=== PATIENT | female | born 1940 | race Caucasian/White ===

== ENCOUNTER 2023-05-14 12:33 | Inpatient (IN) | payer MEDICARE, MEDICAID ==
[~2023-05-14] VITALS: Ht 162.6 cm; Wt 58.4 kg
[~2023-05-14 12:33] MED LIST: AMLO-257 PO; ASPI-1450 PO; CITA-144 PO; FAMO20 PO; LEVO88TA7 PO; MULT-1239 PO; POLY17PO11 PO; RISP90SU SQ; TRAZ-252 PO
[2023-05-14 14:22] LABS: BASOPHILS % (AUTO) 0.6 % (0.0-2.0); EOSINOPHILS % (AUTO) 0.7 % (1.0-6.0); HEMOGLOBIN 12.5 g/dL (12.0-16.0); LYMPHOCYTES # (AUTO) 1.4 K/uL (1.0-4.8); MEAN CORPUSCULAR HEMOGLOBIN 29.3 pg (26.0-34.0); MEAN CORPUSCULAR HGB CONC 32.1 G/dL (31.0-37.0); MEAN CORPUSCULAR VOLUME 91 fL (80-100); MONOCYTES # (AUTO) 0.7 K/uL (0.1-1.0); MONOCYTES % (AUTO) 8.2 % (2.0-9.0); NEUTROPHILS % (AUTO) 73.5 % (40.0-70.0); PLATELET COUNT (AUTO) 185 K/uL (150-450); RED BLOOD CELL COUNT(AUTO) 4.27 MIL/uL (4.00-5.20); RED CELL DISTRIBUTION WIDTH 13.9 % (11.5-14.5); WHITE BLOOD COUNT (AUTO) 8.1 K/uL (4.5-11.0)
[2023-05-14 14:32] LABS: ANION GAP 10 mmol/L (8-16); CARBON DIOXIDE 29 mmol/L (22-29); CHLORIDE 105 mmol/L (98-107); CREATININE 0.77 mg/dL (0.60-1.30); GLOMERULAR FILTR. RATE CALC > 60 mL/min (>60); GLUCOSE,RANDOM 94 mg/dL (70-110); POTASSIUM 3.4 mmol/L (3.5-5.1); SODIUM SERUM 144 mmol/L (136-145); UREA NITROGEN, BLOOD 9 mg/dL (7-18)
[2023-05-14 14:33] LABS: COVID AG,FIA SOURCE NASAL SWAB
[2023-05-14 14:33] LABS: CALCIUM, TOTAL 8.9 mg/dL (8.8-10.5)
[2023-05-14 14:39] LABS: ALANINE AMINOTRANSFERASE 18 U/L (12-78); ALBUMIN 3.2 g/dL (3.4-5.0); ALKALINE PHOSPHATASE 86 U/L (46-116); ASPARTATE AMINOTRANSFERASE 25 U/L (15-37); BILIRUBIN,TOTAL 0.4 mg/dL (0.1-1.0); TOTAL PROTEIN, SERUM 6.6 g/dL (6.4-8.2)
[2023-05-14 14:58] LABS: SARS-COV2 (COVID) ANTIGEN,FIA Negative (Negative)
[2023-05-14 15:14] LABS: ALCOHOL, BLOOD (SERUM) < 3 mg/dL (0-10)
[2023-05-15 16:49] LABS: APPEARANCE,URINE CLEAR (CLEAR); BILIRUBIN,URINE NEGATIVE (NEGATIVE); COLOR,URINE YELLOW (YELLOW); GLUCOSE, URINE (UA) NEGATIVE (NEGATIVE); KETONES,URINE =>150 mg/dL (NEGATIVE); LEUKOCYTE ESTERASE ,URINE MODERATE (NEGATIVE); NITRATE,URINE NEGATIVE (NEGATIVE); OCCULT BLOOD,URINE LARGE (NEGATIVE); PROTEIN,URINE TRACE mg/dL (NEGATIVE); SPECIFIC GRAVITIY, URINE 1.025 (1.003-1.030); UROBILINOGEN,URINE <=1.0 mg/dL (<=1.0)
[2023-05-15 16:57] LABS: ALCOHOL, URINE DRUG SCREEN NEGATIVE (NEGATIVE); AMPHET/METH SCREEN,URINE NEGATIVE (NEGATIVE); BARBITURATE SCREEN, URINE NEGATIVE (NEGATIVE); BENZODIAZEPINES SCREEN,URINE NEGATIVE (NEGATIVE); CANNABINOID SCREEN,URINE NEGATIVE (NEGATIVE); COCAINE SCREEN,URINE NEGATIVE (NEGATIVE); METHADONE SCREEN, URINE NEGATIVE (NEGATIVE); OPIATE SCREEN,URINE NEGATIVE (NEGATIVE); PHENCYCLIDINE SCREEN,URINE NEGATIVE (NEGATIVE)
[2023-05-15 17:25] LABS: BACTERIA,URINE Few /HPF (None Seen)
[2023-05-16] MEDS ORDERED: FAMO20 PO (06:24)
[2023-05-16] MEDS ORDERED: IPRA3AMP23 NEB (06:24)
[2023-05-16] MEDS ORDERED: LEVO88TA4 PO (06:24)
[2023-05-16] MEDS ORDERED: OLAN10TA74 PO (06:24)
[2023-05-16] MEDS ORDERED: HALO5TAB23 PO (06:24)
[2023-05-16] MEDS ORDERED: ASPI-1450 PO (06:24)
[2023-05-16] MEDS ORDERED: DIVA125C20 PO (06:24)
[2023-05-16] MEDS: LEVOTHYROXINE SODIUM 88 MCG TABLET PO ONE (08:09)
[2023-05-16] MEDS: OLANZapine 10 MG TABLET PO ONE (08:12)
[2023-05-16] MEDS: DIVALPROEX SODIUM 125 MG DR CAPSULE PO ONE (08:12)
[2023-05-16] MEDS: FAMOTIDINE 20 MG TABLET PO ONE (08:12)
[2023-05-16] MEDS: OLANZapine 10 MG TABLET PO SCH (09:00)
[2023-05-16] MEDS: DIVALPROEX SODIUM 125 MG DR CAPSULE PO SCH (09:00)
[2023-05-16] MEDS: LORazepam 1 MG TABLET PO PRN (09:48)
[2023-05-16] MEDS: QUEtiapine FUMARATE 100 MG TABLET PO PRN (09:48)
[2023-05-16] MEDS: HALOPERIDOL LACTATE 5 MG/ML VIAL IM ONE (10:16)
[2023-05-16] MEDS: LORazepam 2 MG/ML VIAL IM ONE (10:16)
[2023-05-16] MEDS: CefTRIAXone 1 GM/DEXTROSE 50 ML IV ONE (16:49)
[2023-05-16] MEDS: SODIUM CHLORIDE 0.9% 1,000 ML IV ONE (16:50)
[2023-05-16 17:23] LABS: BASOPHILS % (AUTO) 1.1 % (0.0-2.0); EOSINOPHILS % (AUTO) 0.9 % (1.0-6.0); HEMOGLOBIN 13.4 g/dL (12.0-16.0); LYMPHOCYTES % (AUTO) 21.6 % (22.0-44.0); MEAN CORPUSCULAR HEMOGLOBIN 30.2 pg (26.0-34.0); MEAN CORPUSCULAR HGB CONC 33.5 G/dL (31.0-37.0); MEAN CORPUSCULAR VOLUME 90 fL (80-100); MONOCYTES # (AUTO) 0.9 K/uL (0.1-1.0); MONOCYTES % (AUTO) 9.9 % (2.0-9.0); NEUTROPHILS # (AUTO) 6.2 K/uL (1.8-7.7); NEUTROPHILS % (AUTO) 66.5 % (40.0-70.0); PLATELET COUNT (AUTO) 221 K/uL (150-450); RED BLOOD CELL COUNT(AUTO) 4.44 MIL/uL (4.00-5.20); WHITE BLOOD COUNT (AUTO) 9.3 K/uL (4.5-11.0)
[2023-05-16 17:33] LABS: LACTIC ACID 1.8 mmol/L (0.4-2.0)
[2023-05-16] MEDS: SODIUM CHLORIDE 0.9% 1,750 ML IV ONE (20:28)
[2023-05-16] MEDS ORDERED: 0.9% SODIUM CHLORIDE 10 ML SYRINGE IVP PRN (20:30)
[2023-05-16 21:12] LABS: ANION GAP 10 mmol/L (8-16); CALCIUM, TOTAL 9.3 mg/dL (8.8-10.5); CARBON DIOXIDE 28 mmol/L (22-29); CHLORIDE 104 mmol/L (98-107); CREATININE 0.81 mg/dL (0.60-1.30); GLOMERULAR FILTR. RATE CALC > 60 mL/min (>60); GLUCOSE,RANDOM 124 mg/dL (70-110); INR 1.1 (0.9-1.1); POTASSIUM 3.9 mmol/L (3.5-5.1); PROTHROMBIN TIME 11.2 SEC (9.4-11.6); SODIUM SERUM 142 mmol/L (136-145); UREA NITROGEN, BLOOD 9 mg/dL (7-18)
[2023-05-16 21:17] LABS: ALANINE AMINOTRANSFERASE 17 U/L (12-78); ALBUMIN 3.2 g/dL (3.4-5.0); ALKALINE PHOSPHATASE 91 U/L (46-116); ASPARTATE AMINOTRANSFERASE 34 U/L (15-37); BILIRUBIN,TOTAL 0.3 mg/dL (0.1-1.0); TOTAL PROTEIN, SERUM 7.1 g/dL (6.4-8.2)
[2023-05-17 01:03] VITALS: RESP 18
[2023-05-17] MEDS ORDERED: PNEUMOCOCCAL VACCINE POLYVALENT 0.5 ML SYRINGE [PPSV23] IM. ONE (02:30)
[2023-05-17] MEDS ORDERED: INFLUENZA VIRUS VACCINE QVS 2023-24 (6MO+)/PF 60 MCG/0.5 ML SYRINGE IM. ONE (02:30)
[2023-05-17 08:55] VITALS: BP 142/60; PULSE 60; RESP 17; TEMP 98.1; O2SAT 98
[2023-05-17] MEDS ORDERED: IBUPROFEN 400 MG TABLET PO PRN (09:00)
[2023-05-17] MEDS ORDERED: ACETAMINOPHEN 325 MG TABLET PO PRN (09:00)
[2023-05-17] MEDS: CEPHALEXIN MONOHYDRATE 500 MG CAPSULE PO SCH (09:00)
[2023-05-17] MEDS ORDERED: MAGNESIUM HYDROXIDE SUSPENSION 30 ML UDCUP PO PRN (09:00)
[2023-05-17] MEDS ORDERED: LOPERAMIDE HCL 2 MG CAPSULE PO PRN (09:00)
[2023-05-17] MEDS: ASPIRIN 81 MG CHEWABLE TABLET PO SCH (09:00)
[2023-05-17] MEDS: FAMOTIDINE 20 MG TABLET PO SCH (09:00)
[2023-05-17] MEDS ORDERED: ALBUTEROL SULFATE HFA 90 MCG/PUFF 8 GM INHALER IH PRN (09:00)
[2023-05-17] MEDS ORDERED: NICOTINE 14 MG/24 HOUR PATCH TD PRN (09:00)
[2023-05-17] MEDS ORDERED: ONDANSETRON HCL 4 MG TABLET PO PRN (09:00)
[2023-05-17] MEDS ORDERED: PETROLATUM,WHITE 28 GM JELLY TP PRN (09:00)
[2023-05-17] MEDS ORDERED: MAG HYDROX/ALUMINUM HYD/SIMETH ES 30 ML SUSPENSION UDCUP PO PRN (09:00)
[2023-05-17] MEDS ORDERED: CloNIDine HCL 0.1 MG TABLET PO PRN (09:00)
[2023-05-17] MEDS ORDERED: DOCUSATE SODIUM 100 MG CAPSULE PO PRN (09:00)
[2023-05-17] MEDS: OLANZapine 10 MG RAPDIS TABLET PO SCH (09:45)
[2023-05-17] MEDS: DIVALPROEX SODIUM 125 MG DR CAPSULE PO SCH (09:45)
[2023-05-17] MEDS ORDERED: IPRATROPIUM BROMIDE 0.5 MG/2.5 ML NEB SOLUTION NEB PRN (11:15)
[2023-05-17] MEDS ORDERED: ALBUTEROL SULFATE 2.5 MG/0.5 ML NEB SOLUTION NEB PRN (11:15)
[2023-05-17] MEDS ORDERED: IPRATROPIUM BROMIDE 0.5 MG/2.5 ML NEB SOLUTION NEB SCH (14:00)
[2023-05-17 21:26] VITALS: BP 140/63; PULSE 62; RESP 18; TEMP 98; O2SAT 98
[2023-05-18] MEDS: LEVOTHYROXINE SODIUM 88 MCG TABLET PO SCH (07:00)
[2023-05-18 08:05] VITALS: BP 137/81; PULSE 82; RESP 18; TEMP 98.1; O2SAT 97
[2023-05-18] MEDS: PRE FILLED SQ SCH (09:40)
[2023-05-18] MEDS: RISPERIDONE SQ SCH (09:40)
[2023-05-18 19:29] LABS: HEMOGLOBIN A1C 5.6 % (3.8-5.6)
[2023-05-18 19:37] LABS: CHOL/HDL RATIO 3.9 (3.9-5.7); MAGNESIUM 1.8 mg/dL (1.80-2.40); PHOSPHORUS 3.4 mg/dL (2.5-4.9)
[2023-05-18 20:02] LABS: THYROID STIMULATING HORMONE 9.01 uIU/mL (0.36-3.74)
[2023-05-18 20:20] VITALS: BP 119/67; PULSE 77; RESP 18; TEMP 97.7; O2SAT 95
[2023-05-19 08:20] LABS: CHOL/HDL RATIO 3.4 (3.9-5.7)
[2023-05-19 09:27] VITALS: BP 166/79; PULSE 84; RESP 17; TEMP 97.5; O2SAT 95
[2023-05-19 21:32] VITALS: RESP 18
[2023-05-19] MEDS: ZOLPIDEM TARTRATE 10 MG TABLET PO PRN (21:41)
[2023-05-20 09:05] VITALS: BP 148/57; PULSE 76; RESP 18; TEMP 97.8; O2SAT 97
[2023-05-20 20:32] VITALS: BP 145/62; PULSE 70; RESP 18; TEMP 97.3; O2SAT 95
[2023-05-21 12:53] VITALS: RESP 18
[2023-05-21 20:17] VITALS: BP 156/78; PULSE 69; RESP 18; TEMP 96.5; O2SAT 99
[2023-05-22 10:23] VITALS: RESP 18; TEMP 97.4
[2023-05-22 21:19] VITALS: BP 145/75; PULSE 70; RESP 18; TEMP 97.5; O2SAT 98
[2023-05-23 14:15] VITALS: RESP 18
[2023-05-23 20:16] VITALS: RESP 18
[2023-05-24 08:21] VITALS: BP 129/68; PULSE 82; RESP 18; TEMP 96.8; O2SAT 100
[2023-05-24 20:18] VITALS: BP 148/68; PULSE 93; RESP 18; TEMP 97.4; O2SAT 96
[2023-05-25 11:54] VITALS: BP 116/59; PULSE 100; RESP 18; TEMP 97.8; O2SAT 99
[2023-05-25 20:21] VITALS: BP 136/56; PULSE 76; RESP 18; TEMP 97.7; O2SAT 96
[2023-05-26 12:26] VITALS: RESP 18; TEMP 98
[2023-05-26 20:18] VITALS: BP 132/82; PULSE 84; RESP 18; TEMP 97.6; O2SAT 97
[2023-05-27 12:09] VITALS: BP 115/70; PULSE 78; RESP 17; TEMP 98; O2SAT 96
[2023-05-28 10:43] VITALS: RESP 18; TEMP 97.6
[2023-05-29 17:53] VITALS: BP 123/65; PULSE 98; RESP 18; TEMP 96.8; O2SAT 96
[2023-05-29 20:13] VITALS: BP 130/49; PULSE 98; RESP 18; TEMP 97.7; O2SAT 96
[2023-05-30 08:44] VITALS: BP 138/54; PULSE 83; RESP 18; TEMP 97.5; O2SAT 98
[2023-05-30 21:45] VITALS: RESP 18
[2023-05-31 13:31] VITALS: RESP 18
[2023-05-31 21:35] VITALS: BP_SYST 139; BP_DIAS 59; BP_DIAS 69; PULSE 87; PULSE 90; RESP 18; TEMP 97.1; O2SAT 87; O2SAT 98
[2023-06-01 08:38] VITALS: RESP 18; TEMP 97.4
[2023-06-01 20:10] VITALS: BP 123/67; PULSE 69; RESP 18; TEMP 98; O2SAT 95
[2023-06-02 11:55] VITALS: RESP 17; TEMP 98.2
[2023-06-02] MEDS: TUBERCULIN, PURIFIED PROTEIN DERIVATIVE 5 TU/0.1 ML SYRINGE ID ONE (12:15)
[2023-06-02 20:16] VITALS: BP 97/55; PULSE 66; RESP 18; TEMP 97.4; O2SAT 95
[2023-06-03 10:36] VITALS: RESP 18; TEMP 97.6
[2023-06-03 14:09] VITALS: BP 129/67; PULSE 85; RESP 18; TEMP 98.2; O2SAT 100
[2023-06-03 20:01] VITALS: BP 124/72; PULSE 82; RESP 18; TEMP 97.9; O2SAT 98
[2023-06-04 11:42] VITALS: BP 130/70; PULSE 89; RESP 17; TEMP 98; O2SAT 96
[2023-06-05 09:05] VITALS: BP 156/64; PULSE 76; RESP 18; TEMP 97.6; O2SAT 97
[2023-06-05 20:11] VITALS: BP 132/75; PULSE 72; RESP 18; TEMP 97.9; O2SAT 98
[2023-06-06 11:02] VITALS: BP 126/69; PULSE 85; RESP 17; TEMP 98; O2SAT 96
[2023-06-06 21:14] VITALS: RESP 18; TEMP 98.1
[2023-06-07 11:03] VITALS: BP 137/60; PULSE 54; RESP 16; TEMP 97.6; O2SAT 97
[2023-06-07 21:50] VITALS: BP 131/58; PULSE 72; RESP 18; TEMP 97.8; O2SAT 96
[2023-06-08 08:20] VITALS: BP 130/66; PULSE 76; RESP 18; TEMP 98; O2SAT 97
[2023-06-08 20:06] VITALS: BP 132/78; PULSE 72; RESP 18; TEMP 97.7; O2SAT 97
[2023-06-09 08:53] VITALS: BP 124/76; PULSE 64; RESP 18; TEMP 98.1; O2SAT 97
[2023-06-09 21:41] VITALS: RESP 18
[2023-06-10 07:44] LABS: BASOPHILS % (AUTO) 0.1 % (0.0-2.0); EOSINOPHILS % (AUTO) 0 % (1.0-6.0); HEMATOCRIT 39.3 % (36-46); HEMOGLOBIN 12.9 g/dL (12.0-16.0); LYMPHOCYTES # (AUTO) 1.6 K/uL (1.0-4.8); LYMPHOCYTES % (AUTO) 7.9 % (22.0-44.0); MEAN CORPUSCULAR HEMOGLOBIN 29.8 pg (26.0-34.0); MEAN CORPUSCULAR HGB CONC 32.9 G/dL (31.0-37.0); MEAN CORPUSCULAR VOLUME 91 fL (80-100); MONOCYTES # (AUTO) 2.1 K/uL (0.1-1.0); MONOCYTES % (AUTO) 9.9 % (2.0-9.0); NEUTROPHILS # (AUTO) 17.1 K/uL (1.8-7.7); NEUTROPHILS % (AUTO) 82.1 % (40.0-70.0); PLATELET COUNT (AUTO) 194 K/uL (150-450); RED BLOOD CELL COUNT(AUTO) 4.33 MIL/uL (4.00-5.20); RED CELL DISTRIBUTION WIDTH 14.3 % (11.5-14.5); WHITE BLOOD COUNT (AUTO) 20.8 K/uL (4.5-11.0)
[2023-06-10 07:54] LABS: CALCIUM, TOTAL 8.6 mg/dL (8.8-10.5); CREATININE 1.09 mg/dL (0.60-1.30); POTASSIUM 4.3 mmol/L (3.5-5.1)
[2023-06-10 11:36] VITALS: BP 123/60; PULSE 73; RESP 18; TEMP 98; O2SAT 96
[2023-06-10 21:11] VITALS: TEMP 98
[2023-06-11 09:19] VITALS: BP 136/70; PULSE 76; RESP 18; TEMP 98; O2SAT 92
[2023-06-12 14:41] LABS: BASOPHILS % (AUTO) 0.4 % (0.0-2.0); EOSINOPHILS % (AUTO) 0.1 % (1.0-6.0); HEMATOCRIT 38.4 % (36-46); HEMOGLOBIN 12.7 g/dL (12.0-16.0); LYMPHOCYTES # (AUTO) 2.1 K/uL (1.0-4.8); LYMPHOCYTES % (AUTO) 11.9 % (22.0-44.0); MEAN CORPUSCULAR HEMOGLOBIN 30.2 pg (26.0-34.0); MEAN CORPUSCULAR HGB CONC 33.1 G/dL (31.0-37.0); MEAN CORPUSCULAR VOLUME 91 fL (80-100); MONOCYTES % (AUTO) 11.3 % (2.0-9.0); NEUTROPHILS # (AUTO) 13.2 K/uL (1.8-7.7); NEUTROPHILS % (AUTO) 76.3 % (40.0-70.0); PLATELET COUNT (AUTO) 201 K/uL (150-450); RED CELL DISTRIBUTION WIDTH 14.2 % (11.5-14.5); WHITE BLOOD COUNT (AUTO) 17.4 K/uL (4.5-11.0)
[2023-06-12 20:44] VITALS: RESP 18
[2023-06-13 08:30] VITALS: BP 157/50; PULSE 76; RESP 18; TEMP 98.2; O2SAT 94
[2023-06-13 22:11] VITALS: RESP 18
[2023-06-14 11:00] LABS: BASOPHILS % (AUTO) 0.6 % (0.0-2.0); EOSINOPHILS % (AUTO) 1.4 % (1.0-6.0); HEMATOCRIT 35.9 % (36-46); HEMOGLOBIN 11.7 g/dL (12.0-16.0); LYMPHOCYTES # (AUTO) 1.9 K/uL (1.0-4.8); LYMPHOCYTES % (AUTO) 12.6 % (22.0-44.0); MEAN CORPUSCULAR HEMOGLOBIN 29.4 pg (26.0-34.0); MEAN CORPUSCULAR HGB CONC 32.5 G/dL (31.0-37.0); MEAN CORPUSCULAR VOLUME 91 fL (80-100); MONOCYTES # (AUTO) 1.5 K/uL (0.1-1.0); MONOCYTES % (AUTO) 9.9 % (2.0-9.0); NEUTROPHILS # (AUTO) 11.7 K/uL (1.8-7.7); NEUTROPHILS % (AUTO) 75.5 % (40.0-70.0); PLATELET COUNT (AUTO) 264 K/uL (150-450); RED BLOOD CELL COUNT(AUTO) 3.96 MIL/uL (4.00-5.20); RED CELL DISTRIBUTION WIDTH 14.3 % (11.5-14.5); WHITE BLOOD COUNT (AUTO) 15.4 K/uL (4.5-11.0)
[2023-06-15 06:59] LABS: BASOPHILS % (AUTO) 0.8 % (0.0-2.0); EOSINOPHILS % (AUTO) 0.7 % (1.0-6.0); HEMATOCRIT 35.4 % (36-46); HEMOGLOBIN 11.8 g/dL (12.0-16.0); LYMPHOCYTES # (AUTO) 3.3 K/uL (1.0-4.8); LYMPHOCYTES % (AUTO) 17.9 % (22.0-44.0); MEAN CORPUSCULAR HEMOGLOBIN 30.2 pg (26.0-34.0); MEAN CORPUSCULAR HGB CONC 33.4 G/dL (31.0-37.0); MEAN CORPUSCULAR VOLUME 90 fL (80-100); MONOCYTES # (AUTO) 2.4 K/uL (0.1-1.0); MONOCYTES % (AUTO) 13.2 % (2.0-9.0); NEUTROPHILS # (AUTO) 12.3 K/uL (1.8-7.7); NEUTROPHILS % (AUTO) 67.4 % (40.0-70.0); PLATELET COUNT (AUTO) 280 K/uL (150-450); RED BLOOD CELL COUNT(AUTO) 3.92 MIL/uL (4.00-5.20); RED CELL DISTRIBUTION WIDTH 14.2 % (11.5-14.5); WHITE BLOOD COUNT (AUTO) 18.2 K/uL (4.5-11.0)
[2023-06-15 10:59] VITALS: RESP 18
[2023-06-15] MEDS: LORazepam 2 MG/ML VIAL IM ONE (18:08)
[2023-06-16] MEDS: GuaiFENesin/D-METHORPHAN [SUGAR-FREE] 200-20MG/10 ML SYRUP UDCUP PO PRN (08:43)
[2023-06-16 10:08] VITALS: BP 148/78; PULSE 82; RESP 18; TEMP 99.2; O2SAT 95
[2023-06-16 20:00] VITALS: RESP 19; TEMP 97
[2023-06-17 09:15] VITALS: RESP 18; TEMP 97.6
[2023-06-17 12:47] VITALS: PULSE 87; RESP 18; TEMP 97.9
[2023-06-17 20:08] VITALS: RESP 18
[2023-06-18 08:33] VITALS: TEMP 98
[2023-06-18 20:23] VITALS: RESP 18
[2023-06-19 08:14] VITALS: RESP 17; TEMP 97.6
[2023-06-19 21:39] VITALS: RESP 18
[2023-06-20 11:35] VITALS: RESP 17
[2023-06-20 21:31] VITALS: RESP 18
[2023-06-21 07:43] LABS: BASOPHILS % (AUTO) 0.7 % (0.0-2.0); EOSINOPHILS % (AUTO) 1.7 % (1.0-6.0); HEMATOCRIT 34.6 % (36-46); HEMOGLOBIN 11.4 g/dL (12.0-16.0); LYMPHOCYTES # (AUTO) 2.1 K/uL (1.0-4.8); LYMPHOCYTES % (AUTO) 18.3 % (22.0-44.0); MEAN CORPUSCULAR HEMOGLOBIN 29.7 pg (26.0-34.0); MEAN CORPUSCULAR HGB CONC 32.9 G/dL (31.0-37.0); MEAN CORPUSCULAR VOLUME 90 fL (80-100); MONOCYTES # (AUTO) 1.1 K/uL (0.1-1.0); MONOCYTES % (AUTO) 9.4 % (2.0-9.0); NEUTROPHILS # (AUTO) 7.9 K/uL (1.8-7.7); NEUTROPHILS % (AUTO) 69.9 % (40.0-70.0); PLATELET COUNT (AUTO) 309 K/uL (150-450); RED BLOOD CELL COUNT(AUTO) 3.84 MIL/uL (4.00-5.20); RED CELL DISTRIBUTION WIDTH 13.8 % (11.5-14.5); WHITE BLOOD COUNT (AUTO) 11.3 K/uL (4.5-11.0)
[2023-06-21 09:11] VITALS: BP 157/66; PULSE 66; RESP 18; TEMP 98.9; O2SAT 98
[2023-06-21] MEDS ORDERED: OLAN10TA26 PO (19:20)
[2023-06-21] MEDS ORDERED: RISP90SU IM (19:21)
== END 2023-06-21 20:50 | DRG 885 ==
LOC: EMS 12:35 → 3EX 05-16 23:42 → UNDOADMIN 05-16 23:42 → 3EX 05-16 23:43
PROVIDERS: ADMIT Psychiatry & Neurology Child & Adolescent Psychiatry; ATTEND Psychiatry & Neurology Psychiatry
PROC: GZHZZZZ Group Psychotherapy (ICD-10-PCS; principal; 2023-05-17)
PROC: GZ51ZZZ Individual Psychotherapy, Behavioral (ICD-10-PCS; 2023-05-17)
DX: F25.0 Schizoaffective disorder, bipolar type (principal); J18.9 Pneumonia, unspecified organism; N39.0 Urinary tract infection, site not specified; J44.0 Chronic obstructive pulmonary disease with (acute) lower respiratory infection; I10 Essential (primary) hypertension; K21.9 Gastro-esophageal reflux disease without esophagitis; E03.9 Hypothyroidism, unspecified; I69.320 Aphasia following cerebral infarction; Z91.199 Patient's noncompliance with other medical treatment and regimen due to unspecified reason
CPT/HCPCS: 71045; 71250; 80048; 80053; 80061; 80164; 80307; 81001; 83036; 83605; 83735; 84100; 84145; 84439; 84443; 85025; 85610; 93005; 99291; G0378; G0480; J0696; J1630; J2060; J7030; Q9967; 36415-L1; 36415-TC